=== PATIENT | male | born 1990 | race Caucasian/White ===

== ENCOUNTER 2019-03-10 19:54 | Emergency (ER) | payer MEDICAID ==
[~2019-03-10] VITALS: Ht 167.6 cm; Wt 88.0 kg
[~2019-03-10 19:54] MED LIST: CIPR2.5D18 LEFTEYE; DIPH-423 PO; DULO20CA50 PO; PRED20TA PO
[2019-03-10] MEDS ORDERED: LIDOcaine 1% 30ml preserv. free vial IJ ONE (20:45)
[2019-03-10] MEDS ORDERED: sulfamethoxazole/trimethoprim DS (800/160mg) tablet PO ONE ×2 (21:35)
[2019-03-10] MEDS ORDERED: SULF1TAB49 PO (21:37)
[2019-03-10] MEDS ORDERED: acetaminophen 325mg tablet PO ONE (21:50)
[2019-03-10 21:54] VITALS: BP 131/94
== END 2019-03-10 21:56 | disposition home or self-care (01) ==
LOC: ER 19:54
DX: L03.012 Cellulitis of left finger (principal); F32.9 Major depressive disorder, single episode, unspecified; Z79.899 Other long term (current) drug therapy
CPT/HCPCS: 26011; 99284